=== PATIENT | female | born 1975 | race African-American/Black ===

== ENCOUNTER 2017-05-19 16:23 | Emergency (ER) | payer MEDICAID ==
[~2017-05-19] VITALS: Ht 167.6 cm; Wt 149.0 kg
[~2017-05-19 16:23] MED LIST: FLUO40CA8 PO; LISI-186 PO; METF10002 PO; SIMV40TA5 PO; TRAZ-132 PO
[2017-05-19 16:35] VITALS: BP 132/72
== END 2017-05-20 00:16 | disposition left against medical advice (07) ==
LOC: ER 16:23
DX: Z53.21 Procedure and treatment not carried out due to patient leaving prior to being seen by health care provider (principal)

== ENCOUNTER 2019-04-06 18:09 | Emergency (ER) | payer MEDICAID ==
[~2019-04-06] VITALS: Ht 162.6 cm; Wt 80.0 kg
[~2019-04-06 18:09] MED LIST changes: +METF-416 PO; -METF10002 PO; -TRAZ-132 PO; +TRAZ-213 PO
[2019-04-06] MEDS ORDERED: BACITRACIN ZINC OINT UDPKT TOP ONE (19:00)
[2019-04-06] MEDS ORDERED: LIDOCAINE HCL/PF 1% 10 MG/ML 5ML VIAL IJ ONE (19:00)
[2019-04-06] MEDS ORDERED: NAPROXEN 375MG TABLET PO ONE (20:15)
[2019-04-06 21:02] VITALS: BP 141/80
== END 2019-04-06 21:04 | disposition home or self-care (01) ==
LOC: ER 18:12
DX: S01.81XA Laceration without foreign body of other part of head, initial encounter (principal); E11.9 Type 2 diabetes mellitus without complications; I10 Essential (primary) hypertension; E78.00 Pure hypercholesterolemia, unspecified; F17.200 Nicotine dependence, unspecified, uncomplicated; F12.10 Cannabis abuse, uncomplicated; Z79.899 Other long term (current) drug therapy; Z90.49 Acquired absence of other specified parts of digestive tract; Y08.89XA Assault by other specified means, initial encounter; Y93.89 Activity, other specified; Y92.89 Other specified places as the place of occurrence of the external cause; Y99.8 Other external cause status
CPT/HCPCS: 12011; 70450; 81025; 99284; J3490